=== PATIENT | female | born 1935 | race Caucasian/White ===

== ENCOUNTER 2016-10-04 18:10 | Emergency (ER) | payer MEDICARE, OTHER ==
--- NOTE | 2016-10-04 18:47 | CT REPORT ---
HISTORY: Dizziness, blurred vision, head trauma 2 days ago COMPARISON: None. TECHNIQUE: Axial non-contrast images obtained from skull vertex through foramen magnum. Dose reduction technique was utilized. FINDINGS: BRAIN: There is age related atrophy. Acute subdural hematoma along the left posterior falx and left intrafor aminal. Subdural hematoma measures up to 4 mm in maximum axial thickness. No significant mass effect or hydrocephalus. There is no CT evidence of infarction. BONES AND EXTRACRANIAL SOFT TISSUES: The orbits are unremarkable. The paranasal sinuses and mastoid air cells are clear. The calvarium is intact. IMPRESSION: 1. Acute left parafalcine and tentorial subdural hematoma. 2. Age related atrophy. Critical results were communicated to ROSALIND LINO MD at 10/04/2016 6:43 PM. Final Electronic Signature: This report was electronically signed by Holden Bland MD on 10/04/2016 6:45 PM. nara /
[2016-10-04 19:00] LABS: BASOPHIL# 0.3 X 10^3uL (0.0-0.1); BASOPHILS 4.4 % (0.0-2.0); EOSINOPHILS 0.7 % (0.0-6.0); HEMATOCRIT 40.7 % (36.0-48.0); HEMOGLOBIN 13.8 g/dL (12.0-16.0); LYMPHOCYTES 17.3 % (20.0-40.0); LYMPHOCYTES# 1.1 X 10^3uL (0.8-3.8); MEAN CELL VOLUME 101.4 fL (80.0-100.0); MEAN CORPUSCULAR HEMOGLOBIN 34.5 pg (29.0-35.0); MEAN PLATELET VOLUME 7.9 fL (7.4-10.4); MONOCYTES 10.5 % (2.0-10.0); MONOCYTES# 0.7 X 10^3uL (0.2-1.0); NEUTROPHILS 67.1 % (54.0-75.0); NEUTROPHILS# 4.5 X 10^3uL (2.6-6.7); PLATELET COUNT 282 X 10^3uL (130-440); RED BLOOD COUNT 4.01 X 10^6uL (4.20-6.10); RED CELL DISTRIBUTION WIDTH 13.4 % (11.5-14.5); WHITE BLOOD COUNT 6.6 X 10^3uL (3.9-10.7)
[2016-10-04] MEDS ORDERED: PHYTONADIONE 10 MG/ML AMP ONE (19:07)
[2016-10-04] MEDS ORDERED: PROTHROMBIN COMPLEX CONCENTRATE IV ONE (19:08)
[2016-10-04] MEDS ORDERED: [UNRECOGNIZED DRUG - OTHER] IV ONE (19:08)
[2016-10-04 19:11] LABS: BLOOD UREA NITROGEN 22 mg/dL (7-17); CALCIUM 9.5 mg/dL (8.4-10.2); CHLORIDE 95 mmol/L (98-107); CREATININE 0.8 mg/dL (0.5-1.0); GLUCOSE 113 mg/dL (70-100); POTASSIUM 3.8 mmol/L (3.5-5.1); SODIUM 133 mmol/L (137-145)
--- NOTE | 2016-10-04 19:46 | ER NURSING DOCUMENTATION ---
Nurse's Notes [facility] Name:Ashley Rolon Age:81 yrs Sex:Female :1935 Arrival Date:10/04/2016 Time:18:10 BedTrauma-A Private MD:Luis M Cobos Diagnosis:Intracranial Bleed: Subdural-Hematoma; Left Posterior Parafalcine Presentation: 10/04 18:20 Presenting complaint: Patient states: States she fell from her bed 2 nights ago, hit rs the posterior, no problems that noc. Next am had a mild ESTRADA. This afternoon she has developed a left sided ESTRADA. Had left eye surgery 3 weeks ago and that eye feels slightly different but her vision is unchanged. Transition of care: Home. 18:20 Acuity: TRICIA 3 rs 18:20 Method Of Arrival: Private Vehicle rs Triage Assessment: 18:26 Headache History: Denies prior headaches. General: Appears in no apparent distress, rs comfortable, well developed, well nourished, well groomed, Behavior is cooperative, pleasant. Pain: Complains of pain in left side of head. Neuro: No deficits noted. Level of Consciousness is awake, alert, Oriented to person, place, time, event. Cardiovascular: No deficits noted. Capillary refill < 3 seconds Pulses are 3+ in left radial artery. Respiratory: No deficits noted. Respiratory effort is even, unlabored, Respiratory pattern is regular, symmetrical. Derm: No deficits noted. Skin is pink, warm & dry. Historical: - Allergies: Flymama-Rlz-Kru Reductase Inhibitors; - Home Meds: 1. Potassium Chloride Oral 2. Coumadin Oral 3. vitamins 4. Coreg Oral 5. Lasix Oral 6. spironolactone Oral 7. coumadin 5 mg one half to one tab as directed 8. budesonide oral 9. Cardizem CD 240 mg oral cp24 1 cap once daily 10. timolol maleate 0.5 % ophthalmic drop twice a day 11. patanase 0.6% solution two sprays each nostril BID 12. Klonopin 1 mg oral tab 1/2 to one tab QHS prn sleep 13. Lasix 40 mg oral tab 1 tab plus one half tab extra prn edema 14. potassium chloride 10 mEq oral TbER 2 tabs once daily for Hypokalemia Prevention 15. Nitrostat 0.4 mg sublingual subl 1 tab at the first sign of an attack; no more than 3 tabs are recommended within a 15 minute period. 16. restasis 0.05% use as directed - PMHx: ATRIAL FIB; CHF; GLAUCOMA; Esophageal Stricture (January 06, 2016); humeral fx; osteopenia; eczema; OSTEOARTHRITIS; CHF; CAD; HTN; nocturnal hypoxia; sleep apnrea; - PSHx: left eye; - Tetanus: < 10 years. - Ebola Screening: : Patient negative for fever greater than or equal to 101.5 degrees Fahrenheit, and additional compatible Ebola Virus Disease symptoms. Patient denies exposure to infectious person. Patient denies travel to an Ebola-affected area in the 21 days before illness onset. No symptoms or risks identified at this time. . - Immunization history: Unable to Obtain. - Social history: Smoking status: Patient states was never smoker of tobacco. Screenin:43 Infectious Disease Risk None. Abuse screen: Denies threats or abuse. Nutritional rs screening: No deficits noted. Assessment: 19:27 Reassessment: No changes from previously documented assessment. rs Vital Signs: 18:18 BP 161 / 92 (auto/); Pulse 96; Resp 18; Pulse Ox 96% ; Weight 43.09 kg; rs 18:22 Pulse Ox 94% ; rs 19:15 BP 150 / 88 (auto/); rs 19:17 Pulse Ox 92% ; rs Kewadin Coma Score: 18:15 Eye Response: spontaneous(4). Verbal Response: oriented(5). Motor Response: obeys cd commands(6). Total: 15. 19:27 Eye Response: spontaneous(4). Verbal Response: oriented(5). Motor Response: obeys rs commands(6). Total: 15. 19:28 Eye Response: spontaneous(4). Verbal Response: oriented(5). Motor Response: obeys cd commands(6). Total: 15. 19:30 Eye Response: spontaneous(4). Verbal Response: oriented(5). Motor Response: obeys cd commands(6). Total: 15. ED Course: 18:12 Patient arrived in ED. lm3 18:12 Luis M Cobos MD is Private Physician. lm3 18:20 Shagufta Cooper RN is Primary Nurse. rs 18:20 Eliezer White MD is Attending Physician. cd 18:[address] ms 18:24 Triage completed. rs 18:30 Notified ED Physician of patient's arrival and chief complaint. Dr. White notified. Arm rs band placed on Bed in low position Call Light in Reach Gowned HOB Elevated Side rails up x1. CT done. 18:30 Door closed. Noise minimized. Lights dimmed. Verbal reassurance given. rs 18:38 Patient moved back from CT. pm1 19:15 Inserted peripheral IV: 20 gauge in left forearm. lb 19:50 Valuables Remains with patient. Pulse Ox - RN Monitoring Only. rs Administered Medications: Completed: Kcentra 25 units/kg IV at 120 units/min once; not to exceed 2,500 units initiate at rate = 0.12 mL/kg/min (~3 units/kg/min) not to exceed maximum rate = 8.4 mL/min (~210 units/min) Give 1080 Units at 120 units/min IVPB over 9 minutes 19:11 Drug: Vitamin K1 10 mg; Route: Sub-Q; Site: right upper arm; lb 19:45 Follow up: Response: No adverse reaction rs Outcome: 19:35 ER care complete, transfer ordered by . cd 19:45 Patient left the ED. rs 19:46 Transferred: Patient will be transferred to: [facility]. Patient rs will be transported by: [facility] ground. 19:50 Condition: stable rs 19:50 Report given to Ronny CLAYTON at [facility] ER 19:50 Instructed on need for transfer 20:07 Patient left the ED. rs Signatures: Shagufta Cooper RN RN rs Eliezer White MD MD Lisa Self ms, Philisha pm1 Suzan Short Jessica Moran lm3
--- NOTE | 2016-10-04 19:46 | ER PHYSICIAN DOCUMENTATION ---
Physician Documentation [facility] Name:Ashley Rolon Age:81 yrs Sex:Female :1935 Arrival Date:10/04/2016 Time:18:10 BedTrauma-A Private MD:Luis M Cobos ED, Chris Disposition: 10/04/16 19:35 Transfer ordered to [facility]. Diagnosis is Intracranial Bleed: Subdural - Hematoma; Left Posterior Parafalcine. - Reason for transfer: Higher level of care. - Accepting physician is Dr. Waller [facility] Trauma Surgeon. - Condition is Fair. - Problem is new. - Symptoms are unchanged. COBRA Form completed? Yes Transfer - Mode of Transportation Ambulance HPI: 10/04 18:15 This 81 yrs old Female presents to ER via Private Vehicle with complaints of cd Headache, Vision Problem. 18:15 The patient or guardian reports injury. The complaints affect the left occipital area cd and right occipital area. Context of injury: The problem was sustained at home, resulted from a fall, while walking, fell at 3:00 AM 2 days ago (exactly 40 hours ago) while going to the bathroom. Hit her posterior head, No LOC, severe Headache, nausea or vomiting. No confusion, or neuro changes. She is on Coumadin for Hx of Atrial Fibrillation. Last INR was last week at 2.1 She went back to bed and woke up in the morning with a left posterior headache. 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 She states her left eye has some blurry vision today. No visual loss or field changes. No Diploplia.. Onset: The symptom(s)/episode began/occurred acutely, 2 day(s) ago. Associated signs and symptoms: Loss of consciousness: This patient did not experience any loss of consciousness. Pertinent positives: headache, injury, Pertinent negatives: dazed, double vision, nausea, neck pain, seizure, vomiting. Severity of symptoms: At their worst the symptoms were mild, in the emergency department the symptoms are unchanged. 18:34 Intracranial bleed risk factors: age over 60, on anticoagulants or bleeding tendency. cd Historical: - Allergies: Cnajuvo-Zkx-Xnl Reductase Inhibitors; - Home Meds: 1. Potassium Chloride Oral 2. Coumadin Oral 3. vitamins 4. Coreg Oral 5. Lasix Oral 6. spironolactone Oral 7. coumadin 5 mg one half to one tab as directed 8. budesonide oral 9. Cardizem CD 240 mg oral cp24 1 cap once daily 10. timolol maleate 0.5 % ophthalmic drop twice a day 11. patanase 0.6% solution two sprays each nostril BID 12. Klonopin 1 mg oral tab 1/2 to one tab QHS prn sleep 13. Lasix 40 mg oral tab 1 tab plus one half tab extra prn edema 14. potassium chloride 10 mEq oral TbER 2 tabs once daily for Hypokalemia Prevention 15. Nitrostat 0.4 mg sublingual subl 1 tab at the first sign of an attack; no more than 3 tabs are recommended within a 15 minute period. 16. restasis 0.05% use as directed - PMHx: ATRIAL FIB; CHF; GLAUCOMA; Esophageal Stricture (January 06, 2016); humeral fx; osteopenia; eczema; OSTEOARTHRITIS; CHF; CAD; HTN; nocturnal hypoxia; sleep apnrea; - PSHx: left eye; - Tetanus: < 10 years. - Ebola Screening: : Patient negative for fever greater than or equal to 101.5 degrees Fahrenheit, and additional compatible Ebola Virus Disease symptoms. Patient denies exposure to infectious person. Patient denies travel to an Ebola-affected area in the 21 days before illness onset. No symptoms or risks identified at this time. . - Immunization history: Unable to Obtain. - Social history: Smoking status: Patient states was never smoker of tobacco. ROS: 19:25 Cardiovascular: Negative for chest pain, palpitations, edema and pleuritic pain. cd Respiratory: Negative for shortness of breath, dyspnea on exertion, cough, sputum production, wheezing, hemoptysis and pleuritic chest pain. Abdomen/GI: Negative for abdominal pain, nausea, vomiting, diarrhea, constipation, distension, melena, hematochezia and hematemesis. Back: Negative for injury, pain or muscle spasms. : Negative for injury, bleeding, discharge, dysuria, frequency, urgency and swelling. MS/Extremity: Negative for injury, deformity, edema, calf tenderness, pain or coldness. 19:25 Skin: Negative for injury, rash, itching and discoloration. cd 19:25 Constitutional: Negative for body aches, poor PO intake. 19:25 Eyes: Positive for blurry vision, Negative for pain, photophobia, visual disturbance, vision loss. 19:25 ENT: Negative for acute changes. 19:25 Neck: Negative for injury or acute deformity, pain with movement, pain at rest. 19:25 Neuro: Positive for headache, Negative for altered mental status, dizziness, gait disturbance, loss of consciousness, numbness, seizure activity, speech changes, syncope, tingling, weakness. 19:25 All other systems are negative. Exam: Chest/axilla: Normal chest wall appearance and motion. Nontender with no deformity. No lesions are appreciated. Cardiovascular: Regular rate and rhythm with a normal S1 and S2. No gallops, murmurs, or rubs. Normal PMI, no JVD. No pulse deficits. Respiratory: Lungs have equal breath sounds bilaterally, clear to auscultation and percussion. No rales, rhonchi or wheezes noted. No increased work of breathing, no retractions or nasal flaring. Abdomen/GI: Soft, non-tender, with normal bowel sounds. No distension or tympany. No guarding or rebound. No evidence of tenderness throughout. Back: No spinal tenderness. No costovertebral tenderness. Full range of motion. Skin: Warm, dry with normal turgor. Normal color with no rashes, no lesions, and no evidence of cellulitis. 19:28 MS/ Extremity: Pulses equal, no cyanosis. Neurovascular intact. Full, normal range cd of motion. 19:28 Constitutional: The patient appears alert, awake, non-diaphoretic, non-toxic, well developed, well nourished. 19:28 Head/face: Exam is negative for abrasion(s), ecchymosis, swelling, tenderness, Noted is contusion, Basilar skull fracture findings: the patient does not have obvious signs of a basilar skull fracture, no Cao signs, no hemotympanum, no nasal drainage, no racoon eyes. 19:28 Eyes: Pupils: equal, round, and reactive to light and accomodation, Extraocular movements: intact throughout. 19:28 ENT: TM's: are normal, hemotympanum, is not appreciated, bilaterally, Voice: is normal. 19:28 Neck: C-spine: Nexus Criteria: there is no tenderness to the posterior midline, the patient is not clinically intoxicated, the patient displays normal alertness, no focal neurologic deficit is appreciated, no distracting injury is present, Nexus criteria: no cervical midline tenderness, patient is not intoxicated, mental status is normal, no focal/neurologic deficits, and no painful distracting injuries are present, vertebral tenderness, is not appreciated. 19:28 Neuro: Orientation: is normal, to person, place & time. Mentation: is normal, Memory: is normal, Cranial nerves: CN II- XII are normal as tested, Cerebellar function: is grossly normal, normal finger to nose testing, heel to montano testing is normal, Motor: moves all fours, Sensation: is normal, Gait: is steady, Deep tendon reflexes are normal. Vital Signs: 18:18 BP 161 / 92 (auto/); Pulse 96; Resp 18; Pulse Ox 96% ; Weight 43.09 kg; rs 18:22 Pulse Ox 94% ; rs 19:15 BP 150 / 88 (auto/); rs 19:17 Pulse Ox 92% ; rs Clarkson Coma Score: 18:15 Eye Response: spontaneous(4). Verbal Response: oriented(5). Motor Response: obeys cd commands(6). Total: 15. 19:27 Eye Response: spontaneous(4). Verbal Response: oriented(5). Motor Response: obeys rs commands(6). Total: 15. 19:28 Eye Response: spontaneous(4). Verbal Response: oriented(5). Motor Response: obeys cd commands(6). Total: 15. 19:30 Eye Response: spontaneous(4). Verbal Response: oriented(5). Motor Response: obeys cd commands(6). Total: 15. MDM: 18:20 Patient medically screened. cd 18:25 Data interpreted: Pulse oximetry: on room air is 92 %. Interpretation: normal. cd 18:35 Differential diagnosis: Contusion of Intracranial bleed- subdural, epidural, cd subarachnoid, intracerebral, cerebral contusion. 18:55 Data reviewed: vital signs, nurses notes, old medical records, lab test result(s), EKG, cd radiologic studies, CT scan, and as a result, I will *Transfer Patient initiate a consult, from a [facility] Trauma Surgeon, will give Kcentra IV to reverse the patient's INR from Coumadin, which is at 2.2. 19:15 Physician consultation: Dr. Sridhar TRAN was called at 19:00, was contacted at 19:05, regarding admission, to [facility] ED Trauma Service, consult, patient's condition, need to come to ED to see patient, need to evaluate the patient as soon as possible, and will see patient in ED, shortly, after a discussion of the case, a recommendation for transfer for higher level of care is made. 19:30 Neurological re-evaluation: normal neurological exam including cranial nerves, cd orientation, mentation, motor and sensory exam, cerebellar testing, GCS normal, and normal gait. 19:33 Counseling: I had a detailed discussion with the patient and/or guardian regarding: the cd historical points, exam findings, and any diagnostic results supporting the discharge/admit diagnosis, lab results, radiology results, the need to transfer to another facility, for higher level of care, [facility] does not immediately have the required specialist. 19:37 ECG:. 10/04 18:57 Order name: INR W/ CAPI DRAW; Complete Time: 19:17 EDMS 10/04 19:17 Interpretation: Abnormal: INR W/ CAPI DRAW 2.2; On Coumadin for Atrial Fibrillation. In cd [place] range. 10/04 19:02 Order name: CBC AUTO DIF, MDIF/RMOR IF IND; Complete Time: 19:17 EDMS 10/04 19:17 Interpretation: Normal. 10/04 19:12 Order name: BASIC METABOLIC PANEL; Complete Time: 19:17 EDMS 10/04 19:17 Interpretation: Normal Except: SODIUM 133; CHLORIDE 95. 10/04 18:49 Order name: CAT SCAN; HEAD W/O CON [id number]; Complete Time: 19:16 EDMS 10/04 19:18 Interpretation: Abnormal: Subdural Hematoma; See Report. 10/04 18:45 Order name: EKG - 12 Lead; Complete Time: 20:06 cd EC:35 Rate is 100 beats/min. Rhythm is irregularly irregular. QRS interval is normal. QT cd interval is normal. No Q waves. T waves are Normal. ST Segment is depressed in leads V3, V4, V5, V6. Clinical impression: Atrial Fibrillation and Chu-septal infarct, old. Interpreted by me. Dispensed Medications: Completed: Kcentra 25 units/kg IV at 120 units/min once; not to exceed 2,500 units initiate at rate = 0.12 mL/kg/min (~3 units/kg/min) not to exceed maximum rate = 8.4 mL/min (~210 units/min) Give 1080 Units at 120 units/min IVPB over 9 minutes 19:11 Drug: Vitamin K1 10 mg; Route: Sub-Q; Site: right upper arm; lb 19:45 Follow up: Response: No adverse reaction rs Critical care time excluding procedures: 19:36 Critical care time: Bedside Care: 30 minutes, Consultation: 10 minutes, Family cd Intervention: 20 minutes. Total time: 60 minutes Signatures: Shagufta Cooper RN RN rs Eliezer White MD MD cd Bollock, Lynda lb
== END 2016-10-04 20:07 | disposition short-term general hospital (02) ==
LOC: ER 18:10
DX: S06.5X0A Traumatic subdural hemorrhage without loss of consciousness, initial encounter (principal); S00.93XA Contusion of unspecified part of head, initial encounter; W19.XXXA Unspecified fall, initial encounter; Y92.013 Bedroom of single-family (private) house as the place of occurrence of the external cause; Y93.01 Activity, walking, marching and hiking; Z79.01 Long term (current) use of anticoagulants; I48.91 Unspecified atrial fibrillation; E87.1 Hypo-osmolality and hyponatremia; I10 Essential (primary) hypertension; I25.10 Atherosclerotic heart disease of native coronary artery without angina pectoris; Z79.899 Other long term (current) drug therapy; Z74.3 Need for continuous supervision
CPT/HCPCS: 36415; 70450; 80048; 85025; 85610; 93010; 96372; 99285; 99291; C9132; A0425; A0429; J3430

== ENCOUNTER 2016-10-17 09:49 | Emergency (ER) | payer MEDICARE, OTHER ==
--- NOTE | 2016-10-17 10:55 | ER PHYSICIAN DOCUMENTATION ---
Physician Documentation [facility] Name:Ashley Dangelo Age:81 yrs Sex:Female :1935 Arrival Date:10/17/2016 Time:09:49 Bed3 Private MD:Luis M Cobos EDtenaCory Disposition: 10/17/16 10:45 Discharged to Home/Self Care. Impression: Lower Leg Injury, (Knee, Leg, Ankle, Foot). - Condition is Good. - Discharge Instructions: LEG PAIN vascular - PERIPHERAL VASCULAR DISEASE, Leg Injury - CONTUSION, Lower Extremity. - Medical Reconciliation form form. - Follow up: Luis M Cobos MD; When: As needed; Reason: Worsening of condition. - Problem is new. - Symptoms are unchanged. HPI: 10/17 10:42 This 81 yrs old Female presents to ER via Private Vehicle with complaints of sc Leg Pain - RT CALF. 10:42 The patient presents with pain, that is acute. The complaints affect the right calf. sc Context: The problem was sustained at home, resulted from an unknown cause, the patient can fully bear weight, the patient is able to ambulate, stopped coiumadin 2 weeks ago, secondary to sdh. Onset: The symptom(s)/episode began/occurred yesterday. Associated signs and symptoms: The patient has no apparent associated signs or symptoms. Historical: - Allergies: Upvgqub-Vuf-Egw Reductase Inhibitors; - Home Meds: 1. Potassium Chloride Oral 2. vitamins 3. Coreg Oral 4. Lasix Oral 5. spironolactone Oral 6. budesonide oral 7. Cardizem CD 240 mg oral cp24 1 cap once daily 8. timolol maleate 0.5 % ophthalmic drop twice a day 9. patanase 0.6% solution two sprays each nostril BID 10. Klonopin 1 mg oral tab 1/2 to one tab QHS prn sleep 11. Lasix 40 mg oral tab 1 tab plus one half tab extra prn edema 12. potassium chloride 10 mEq oral TbER 2 tabs once daily for Hypokalemia Prevention 13. Nitrostat 0.4 mg sublingual subl 1 tab at the first sign of an attack; no more than 3 tabs are recommended within a 15 minute period. - PMHx: ATRIAL FIB; CHF; GLAUCOMA; Esophageal Stricture (January 06, 2016); humeral fx; osteopenia; eczema; OSTEOARTHRITIS; CAD; HTN; nocturnal hypoxia; sleep apnrea; Intracranial Bleed: Subdural - HematomaLeft Posterior Parafalcine (October 04, 2016); - PSHx: left eye; - Tetanus: < 10 years. - Ebola Screening: : Patient negative for fever greater than or equal to 101.5 degrees Fahrenheit, and additional compatible Ebola Virus Disease symptoms. Patient denies exposure to infectious person. Patient denies travel to an Ebola-affected area in the 21 days before illness onset. No symptoms or risks identified at this time. . - Immunization history: Unable to Obtain. - Social history: Smoking status: Patient states was never smoker of tobacco. ROS: 10:43 Constitutional: Negative for fever, chills, and weight loss. sc Eyes: Negative for injury, pain, redness, and discharge. ENT: Negative for injury, pain, and discharge. Neck: Negative for injury, pain, and swelling. Cardiovascular: Negative for chest pain, palpitations, and edema. Back: Negative for injury and pain. Skin: Negative for injury, rash, and discoloration. 10:43 Neuro: Negative for headache, weakness, numbness, tingling, and seizure. sc 10:43 MS/extremity: Positive for pain. Exam: Constitutional: This is a well developed, well nourished patient who is awake, alert, and in no acute distress. Head/Face: Normocephalic, atraumatic. Eyes: Pupils equal round and reactive to light, extra-ocular motions intact. Lids and lashes normal. Conjunctiva and sclera are non-icteric and not injected. Cornea within normal limits. Periorbital areas with no swelling, redness, or edema. Neck: Trachea midline, no thyromegaly or masses palpated, and no cervical lymphadenopathy. Supple, full range of motion without nuchal rigidity, or vertebral point tenderness. No meningismus. Chest/axilla: Normal chest wall appearance and motion. Nontender with no deformity. No lesions are appreciated. Cardiovascular: Regular rate and rhythm with a normal S1 and S2. No gallops, murmurs, or rubs. Normal PMI, no JVD. No pulse deficits. Respiratory: Lungs have equal breath sounds bilaterally, clear to auscultation and percussion. No rales, rhonchi or wheezes noted. No increased work of breathing, no retractions or nasal flaring. Back: No spinal tenderness. No costovertebral tenderness. Full range of motion. 10:43 Skin: Warm, dry with normal turgor. Normal color with no rashes, no lesions, and no hi evidence of cellulitis. 10:46 Musculoskeletal/extremity: Extremities: grossly normal except: pain, ROM: intact in sc all extremities, Circulation is intact in all extremities. Sensation intact. Compartment Syndrome exam of affected extremity: is normal. Weight bearing: able to fully bear weight, Tendon exam: specific tendon testing normal through active and passive range of motion DVT Exam: No signs of deep vein thrombosis. Vital Signs: 10:23 BP 145 / 80; Pulse 100; Resp 20; Temp 98.7; Pulse Ox 97% on R/A; Pain 2/10; rs MDM: 09:55 Patient medically screened. hi 10:44 Differential diagnosis: dvt vs bakers cyst vs leg cramp, neg us per radiologist Kishan. hi Data reviewed: vital signs, nurses notes, radiologic studies, ultrasound, and as a result, I will discharge patient. Counseling: I had a detailed discussion with the patient and/or guardian regarding: the historical points, exam findings, and any diagnostic results supporting the discharge/admit diagnosis, radiology results, the need for outpatient follow up, to return to the emergency department if symptoms worsen or persist or if there are any questions or concerns that arise at home. 10/17 10:30 Order name: US EXT LOWER RIGHT [id number] [facility] 10/17 10:30 Order name: US EXT LOWER RIGHT [id number] [facility] 10/17 11:13 Order name: US EXT LOWER RIGHT [id number] [facility] Dispensed Medications: No medications were administered Signatures: Shagufta Cooper RN RN rs Pavlish, Lena, RN RN lp Chew, Scott, MD MD hi
--- NOTE | 2016-10-17 10:55 | ER NURSING DOCUMENTATION ---
Nurse's Notes [facility] Name:Ashley Dangelo Age:81 yrs Sex:Female :1935 Arrival Date:10/17/2016 Time:09:49 Bed3 Private MD:Luis M Cobos Diagnosis:Lower Leg Injury, (Knee, Leg, Ankle, Foot) Presentation: 10/17 10:08 Presenting complaint: Patient states: Right posterior leg pain, 2/10, noticed pain this rs morning. October 04 she had a subdural , spent 2 days at [facility] and had no procedures, did not get any worse. Now she is off coumadin, and was started on salt tabs for low Na. Transition of care: Home. 10:08 Acuity: TRICIA 3 rs 10:08 Method Of Arrival: Private Vehicle rs Triage Assessment: 10:19 General: Appears in no apparent distress, comfortable, well developed, well nourished, rs well groomed, Behavior is cooperative, pleasant. Pain: Complains of pain in right calf pain is 2/10. Neuro: No deficits noted. Level of Consciousness is awake, alert, Oriented to person, place, time, event, Multi Operation Machine Operator are equal bilaterally Moves all extremities. Gait is steady. Cardiovascular: No deficits noted. Capillary refill < 3 seconds Pulses are 3+ in right radial artery Denies. Respiratory: No deficits noted. Respiratory effort is even, unlabored, Respiratory pattern is regular, symmetrical, Breath sounds are clear. GI: No deficits noted. Derm: No deficits noted. Skin is pink, warm & dry. Denies. Historical: - Allergies: Avjtwdu-Swb-Gqt Reductase Inhibitors; - Home Meds: 1. Potassium Chloride Oral 2. vitamins 3. Coreg Oral 4. Lasix Oral 5. spironolactone Oral 6. budesonide oral 7. Cardizem CD 240 mg oral cp24 1 cap once daily 8. timolol maleate 0.5 % ophthalmic drop twice a day 9. patanase 0.6% solution two sprays each nostril BID 10. Klonopin 1 mg oral tab 1/2 to one tab QHS prn sleep 11. Lasix 40 mg oral tab 1 tab plus one half tab extra prn edema 12. potassium chloride 10 mEq oral TbER 2 tabs once daily for Hypokalemia Prevention 13. Nitrostat 0.4 mg sublingual subl 1 tab at the first sign of an attack; no more than 3 tabs are recommended within a 15 minute period. - PMHx: ATRIAL FIB; CHF; GLAUCOMA; Esophageal Stricture (January 06, 2016); humeral fx; osteopenia; eczema; OSTEOARTHRITIS; CAD; HTN; nocturnal hypoxia; sleep apnrea; Intracranial Bleed: Subdural - HematomaLeft Posterior Parafalcine (October 04, 2016); - PSHx: left eye; - Tetanus: < 10 years. - Ebola Screening: : Patient negative for fever greater than or equal to 101.5 degrees Fahrenheit, and additional compatible Ebola Virus Disease symptoms. Patient denies exposure to infectious person. Patient denies travel to an Ebola-affected area in the 21 days before illness onset. No symptoms or risks identified at this time. . - Immunization history: Unable to Obtain. - Social history: Smoking status: Patient states was never smoker of tobacco. Screenin:27 Infectious Disease Risk None. Abuse screen: Denies threats or abuse. Nutritional rs screening: No deficits noted. Assessment: 10:26 See Triage Assessment done by same RN. rs Vital Signs: 10:23 BP 145 / 80; Pulse 100; Resp 20; Temp 98.7; Pulse Ox 97% on R/A; Pain 2/10; rs ED Course: 09:51 Patient arrived in ED. lm3 09:51 Luis M Cobos MD is Private Physician. lm3 09:55 Cory De Luna MD is Attending Physician. sc 10:08 Shagufta Cooper, FORREST is Primary Nurse. rs 10:12 Triage completed. rs 10:15 Notified ED Physician of patient's arrival and chief complaint. Arm band placed on Bed rs in low position Call Light in Reach HOB Elevated Side rails up x1. US ordered. 10:16 Patient moved to [facility]. mk 10:27 Patient has correct armband on for positive identification. Placed in gown. Bed in low rs position. Call light in reach. Side rails up X 1. 10:30 US EXT LOWER RIGHT [id number] In Process Unspecified. EDMS 10:30 US EXT LOWER RIGHT [id number] In Process Unspecified. EDMS 10:33 Patient moved back from [facility]. mk 10:44 Luis M Cobos MD is Referral Physician. sc 10:54 Valuables Remains with patient. lp Administered Medications: No medications were administered Outcome: 10:45 Discharge ordered by . alissa 10:54 Discharged to home ambulatory. lp 10:54 Condition: stable 10:54 Instructed on discharge instructions, follow up and referral plans. 10:55 Patient left the ED. lp Signatures: Dispatcher [employer] Shagufta Siddiqi RN RN rs Pavlish, Lena, RN RN lp Chew, Scott, MD MD sc Kimbro, Marcy mk McKibbon-Moore, Lisa 3
--- NOTE | 2016-10-17 11:12 | US REPORT ---
EXAM:US EXT GHASSAN INDICATION: Right leg pain and swelling. COMPARISON:None TECHNIQUE:Duplex sonography was performed of the deep veins of the right leg, including grayscale and color/spectral Doppler interrogation. FINDINGS: The common femoral, superficial femoral, and popliteal veins compress normally and show nor mal flow and augmentation. No echogenic thrombus is demonstrated. Visualized calf veins appear normal . No popliteal cyst or mass is demonstrated. IMPRESSION:Negative for deep vein thrombosis in the right leg. Final Electronic Signature: This report was electronically signed by Brandon Mcconnell MD on 10/17/2016 11:09 AM. tim /
== END 2016-10-17 10:55 | disposition home or self-care (01) ==
LOC: ER 09:49
DX: M79.661 Pain in right lower leg (principal); Z86.79 Personal history of other diseases of the circulatory system; I48.91 Unspecified atrial fibrillation; I10 Essential (primary) hypertension; I25.10 Atherosclerotic heart disease of native coronary artery without angina pectoris; Z79.899 Other long term (current) drug therapy
CPT/HCPCS: 99282; 99284

== ENCOUNTER 2016-10-18 07:23 | Day surgery (SDC) | payer MEDICARE, OTHER ==
[2016-10-18] MEDS ORDERED: FENTANYL 100 MCG/2 ML VIAL ONE (08:26)
[2016-10-18] MEDS ORDERED: LIDOCAINE HCL 2% 20 ML VIAL ONE (08:33)
== END 2016-10-18 09:37 | disposition home or self-care (01) ==
LOC: GI 07:23
PROVIDERS: ATTEND Internal Medicine Cardiovascular Disease
DX: I48.2 Chronic atrial fibrillation (principal); I36.1 Nonrheumatic tricuspid (valve) insufficiency; I50.32 Chronic diastolic (congestive) heart failure
CPT/HCPCS: 1922; 93312; 93321; 93325

== ENCOUNTER 2016-10-20 15:02 | Emergency (ER) | payer MEDICARE, OTHER ==
[2016-10-20] MEDS ORDERED: ACETAMINOPHEN 325 MG TABLET PO ONE (15:48)
[2016-10-20 15:55] LABS: BLOOD UREA NITROGEN 16 mg/dL (7-17); CALCIUM 9.8 mg/dL (8.4-10.2); CHLORIDE 99 mmol/L (98-107); CREATININE 0.8 mg/dL (0.5-1.0); GLUCOSE 106 mg/dL (70-100); MAGNESIUM 2.2 mg/dL (1.6-2.3); POTASSIUM 3.4 mmol/L (3.5-5.1); SODIUM 138 mmol/L (137-145)
[2016-10-20] MEDS ORDERED: POTASSIUM EFF 25 MEQ TABLET ONE (16:20)
--- NOTE | 2016-10-20 16:41 | ER PHYSICIAN DOCUMENTATION ---
Physician Documentation [facility] Name:Ashley Dangelo Age:81 yrs Sex:Female :1935 Arrival Date:10/20/2016 Time:15:02 Bed3 Private MD:Luis M Cobos ED, John Disposition: 10/20/16 16:03 Discharged to Home/Self Care. Impression: Hypokalemia, Lower Extremity Pain. - Condition is Good. - Discharge Instructions: MUSCLE ACHING - MYALGIAS, DIET, High Potassium. - Medical Reconciliation form form. - Follow up: Luis M Cobos MD; When: Tomorrow; Reason: Continuance of care. - Problem is new. - Symptoms have improved. HPI: 10/20 15:37 This 81 yrs old Female presents to ER via Private Vehicle with complaints of jm Leg Pain. 15:37 The patient presents with pain, that is acute. The complaints affect the right calf. jm Context: resulted from an unknown cause, the patient can fully bear weight, the patient is able to ambulate. Onset: The symptom(s)/episode began/occurred 4 day(s) ago, and became worse today. The patient has been recently seen at the [facility] Emergency Department, last week, for similar complaints an ultrasound was performed, and was negative. Pt returns today w continued pain and worried about a blood clot. She is very paranoid. . Historical: - Allergies: Hlgbqyj-Lus-Uov Reductase Inhibitors; - Home Meds: 1. Potassium Chloride Oral 2. vitamins 3. Coreg Oral 4. Lasix Oral 5. spironolactone Oral 6. budesonide oral 7. Cardizem CD 240 mg oral cp24 1 cap once daily 8. timolol maleate 0.5 % ophthalmic drop twice a day 9. patanase 0.6% solution two sprays each nostril BID 10. Klonopin 1 mg oral tab 1/2 to one tab QHS prn sleep 11. Lasix 40 mg oral tab 1 tab plus one half tab extra prn edema 12. potassium chloride 10 mEq oral TbER 2 tabs once daily for Hypokalemia Prevention 13. Nitrostat 0.4 mg sublingual subl 1 tab at the first sign of an attack; no more than 3 tabs are recommended within a 15 minute period. - PMHx: ATRIAL FIB; CHF; GLAUCOMA; Esophageal Stricture (January 06, 2016); humeral fx; osteopenia; OSTEOARTHRITIS; CAD; HTN; nocturnal hypoxia; Intracranial Bleed: Subdural - HematomaLeft Posterior Parafalcine (October 04, 2016); Lower Leg Injury, (Knee, Leg, Ankle, Foot)(October 17, 2016); - PSHx: left eye; - Tetanus: < 10 years. - Ebola Screening: : No symptoms or risks identified at this time. . - Immunization history: Flu Vaccine < 1 year. - Social history: Smoking status: Patient states was never smoker of tobacco. ROS: 15:39 Constitutional: Negative for fatigue, fever. jm 15:39 Respiratory: Negative for shortness of breath. 15:39 MS/extremity: Positive for pain. 15:39 Skin: Negative for swelling. Exam: 15:30 Musculoskeletal/extremity: Extremities: Pulses: are absent in the absent bilaterally. jm , the right foot Tingling of extremity. decreased sensation. 15:30 Psych: Behavior/mood is pleasant, cooperative, anxious. 15:39 Constitutional: The patient appears alert, awake. jm 15:39 Cardiovascular: Rate: normal, Rhythm: regular, Pulses: no pulse deficits are appreciated. 15:39 Respiratory: the patient does not display signs of respiratory distress, Breath sounds: are normal. Vital Signs: 15:15 BP 157 / 111; Pulse 110; Resp 20; Temp 98.2; Pulse Ox 96% ; Weight 44.45 kg; Height 5 lc ft. 5 in. (165.10 cm); Pain 8/10; 15:34 Pulse 104; Resp 16; Pulse Ox 95% ; lc 15:51 BP 153 / 87; Pulse 98; Resp 18; Pulse Ox 95% ; Pain 4/10; lc 15:15 Body Mass Index 16.31 (44.45 kg, 165.10 cm) MDM: 15:22 Patient medically screened. 15:42 Differential diagnosis: DVT, cramps, strain. Data reviewed: vital signs, nurses notes, lab test result(s), and as a result, I will discharge patient. Counseling: I had a detailed discussion with the patient and/or guardian regarding: the historical points, exam findings, and any diagnostic results supporting the discharge/admit diagnosis, lab results, the need for outpatient follow up, with the patient's primary care provider, a orthopedic surgeon. 18:59 ED course: Both feet are pink w cap refill, although I am unable to get pulses in jm either foot. Pt just had a normal US on , so I am doubting any blood clot. . 10/20 15:56 Order name: BASIC METABOLIC PANEL; Complete Time: 16:01 EDMS 10/20 15:56 Order name: MAGNESIUM; Complete Time: 16:01 EDMS Dispensed Medications: 15:38 Drug: Tylenol 650 mg; Route: PO; lc 16:06 Follow up: Response: Pain is decreased 16:06 Drug: Potassium Effervescent Tablet 25 mEq; Route: PO; lc 16:40 Follow up: Response: No adverse reaction sc1 Signatures: Joanne Tyler RN RN Daniela Conte RN RN sc1 Luisito Hinojosa MD MD
--- NOTE | 2016-10-20 16:41 | ER NURSING DOCUMENTATION ---
Nurse's Notes [facility] Name:Ashley Dangelo Age:81 yrs Sex:Female :1935 Arrival Date:10/20/2016 Time:15:02 Bed3 Private MD:Luis M Cobos Diagnosis:Hypokalemia;Lower Extremity Pain Presentation: 10/20 15:11 Presenting complaint: Patient states: c/o sudden onset of right calf pain when walking lc around, after sitting at a desk. No trauma. Hx of subdural 2 weeks ago from a fall and is off her coumadin now, takes for a-fib. Monitor shows a fib now. Transition of care: Home. Notified ED Physician of patient's arrival and CC. 15:11 Acuity: TRICIA 2 lc 15:11 Method Of Arrival: Private Vehicle Triage Assessment: 15:20 General: Appears distressed, uncomfortable, Behavior is anxious, cooperative. Pain: lc Complains of pain in right calf Pain radiates to down calf Pain At worst was 8 out of 10 on a pain scale. Quality of pain is described as sharp, Pain began suddenly, 30 min ago Alleviated by nothing. Neuro: Level of Consciousness is awake, alert, Oriented to person, place, time, event, Skiing Teacher are equal bilaterally Speech is normal, Facial symmetry appears normal. Cardiovascular: Rhythm is atrial fibrillation. Derm: Skin is pink, warm & dry. Musculoskeletal: Circulation, motion, and sensation intact Capillary refill < 3 seconds Range of motion intact in all extremities. no swelling or firmness or redness to calf. Historical: - Allergies: Jxreoyw-Vzg-Tnl Reductase Inhibitors; - Home Meds: 1. Potassium Chloride Oral 2. vitamins 3. Coreg Oral 4. Lasix Oral 5. spironolactone Oral 6. budesonide oral 7. Cardizem CD 240 mg oral cp24 1 cap once daily 8. timolol maleate 0.5 % ophthalmic drop twice a day 9. patanase 0.6% solution two sprays each nostril BID 10. Klonopin 1 mg oral tab 1/2 to one tab QHS prn sleep 11. Lasix 40 mg oral tab 1 tab plus one half tab extra prn edema 12. potassium chloride 10 mEq oral TbER 2 tabs once daily for Hypokalemia Prevention 13. Nitrostat 0.4 mg sublingual subl 1 tab at the first sign of an attack; no more than 3 tabs are recommended within a 15 minute period. - PMHx: ATRIAL FIB; CHF; GLAUCOMA; Esophageal Stricture (January 06, 2016); humeral fx; osteopenia; OSTEOARTHRITIS; CAD; HTN; nocturnal hypoxia; Intracranial Bleed: Subdural - HematomaLeft Posterior Parafalcine (October 04, 2016); Lower Leg Injury, (Knee, Leg, Ankle, Foot)(October 17, 2016); - PSHx: left eye; - Tetanus: < 10 years. - Ebola Screening: : No symptoms or risks identified at this time. . - Immunization history: Flu Vaccine < 1 year. - Social history: Smoking status: Patient states was never smoker of tobacco. Screenin:27 Infectious Disease Risk None. Abuse screen: Denies threats or abuse. Denies injuries lc from another. Nutritional screening: No deficits noted. Assessment: 15:27 See Triage Assessment done by same RN. lc Vital Signs: 15:15 BP 157 / 111; Pulse 110; Resp 20; Temp 98.2; Pulse Ox 96% ; Weight 44.45 kg; Height 5 lc ft. 5 in. (165.10 cm); Pain 8/10; 15:34 Pulse 104; Resp 16; Pulse Ox 95% ; lc 15:51 BP 153 / 87; Pulse 98; Resp 18; Pulse Ox 95% ; Pain 4/10; lc 15:15 Body Mass Index 16.31 (44.45 kg, 165.10 cm) lc ED Course: 15:05 Patient arrived in ED. arc 15:05 Luis M Cobos MD is Private Physician. arc 15:11 Joanne Tyler, RN is Primary Nurse. 15:17 Triage completed. lc 15:17 Inserted peripheral IV: 20 gauge in left antecubital area and blood collected. sj 15:22 Luisito Hinojosa MD is Attending Physician. jm 15:27 Valuables Remains with patient Patient has correct armband on for positive lc identification. Placed in gown. Bed in low position. Call light in reach. Adult w/ patient. Warm blanket given. Elevated right leg. 15:28 security monitor on. lc 15:59 Primary Nurse role handed off by Joanne Tyler, RN ms1 15:59 Daniela Conte RN is Primary Nurse. sc1 16:03 Luis M Cobos MD is Referral Physician. 16:38 Discontinued lock intact, bleeding controlled, pressure dressing applied, No sc1 redness/swelling at site. Administered Medications: 15:38 Drug: Tylenol 650 mg; Route: PO; 16:06 Follow up: Response: Pain is decreased 16:06 Drug: Potassium Effervescent Tablet 25 mEq; Route: PO; 16:40 Follow up: Response: No adverse reaction [facility] Outcome: 16:03 Discharge ordered by . 16:39 Discharged to home ambulatory. [facility] 16:39 Condition: stable 16:39 Discharge instructions given to patient, Instructed on discharge instructions, follow up and referral plans. Demonstrated understanding of instructions. 16:40 Patient left the ED. ms1 Signatures: Joanne Tyler RN RN Daniela Partida RN RN sc1 Luisito Hinojosa MD MD jm Chew, Amelia, Tonie Magaña
[2016-10-20] MEDS ORDERED: MORPHINE SULFATE 4 MG/ML SYR ONE (19:05)
[2016-10-20] MEDS ORDERED: ONDANSETRON HCL 4 MG/2 ML VIAL ONE (19:11)
[2016-10-20] MEDS ORDERED: MORPHINE SULFATE 10 MG/ML SYR ONE (21:36)
== END 2016-10-20 16:40 | disposition home or self-care (01) ==
LOC: ER 15:02
DX: E87.6 Hypokalemia (principal); M79.661 Pain in right lower leg; R20.2 Paresthesia of skin; R09.89 Other specified symptoms and signs involving the circulatory and respiratory systems; I10 Essential (primary) hypertension; I25.10 Atherosclerotic heart disease of native coronary artery without angina pectoris; I48.91 Unspecified atrial fibrillation; Z79.899 Other long term (current) drug therapy; Z86.79 Personal history of other diseases of the circulatory system
CPT/HCPCS: 80048; 83735; 99282; 99284; J2270; J2405

== ENCOUNTER 2016-10-20 18:15 | Emergency (ER) | payer MEDICARE, OTHER ==
[2016-10-20 19:19] LABS: INR 0.9
--- NOTE | 2016-10-20 19:20 | ER NURSING DOCUMENTATION ---
Nurse's Notes [facility] Name:Ashley Dangelo Age:81 yrs Sex:Female :1935 Arrival Date:10/20/2016 Time:18:15 Bed3 Private MD:Luis M Cobos Diagnosis:Arterial Occlusion;Arterial Thrombosis Presentation: 10/20 18:34 Presenting complaint: Patient states: pain persists in right lower leg, rating 10/10, sj with numbness and tingling to right foot. Unable to bear weight. Ongoing x3 days. Transition of care: Home. Notified ED Physician of patient's arrival and CC Ashish Choi notified. 18:34 Method Of Arrival: Private Vehicle sj 18:34 Acuity: TRICIA 2 sj Triage Assessment: 18:35 General: Appears distressed, uncomfortable, Behavior is anxious, cooperative, pleasant. sj Pain: Complains of pain in right lower extremity from mid-calf to toes Pain currently is 10 out of 10 on a pain scale. Neuro: Level of Consciousness is awake, alert, Oriented to person, place, time, event, Weakness paresthesias in left foot. Cardiovascular: Capillary refill is > 3 seconds no cap refill, toes white on right foot. Pulses are absent in right posterior tibial artery and right dorsalis pedis artery unable to obtain right dorsalis pedis or right posterior tibial by Doppler. Able to Doppler right popliteal pulse. Reports. Respiratory: Respiratory effort is even, unlabored. Derm: Skin is discoloration to both lower extremities from mid-tibia to feet. Historical: - Allergies: Etwvkvi-Lip-Ovt Reductase Inhibitors; - Home Meds: 1. potassium chloride Oral 2. multivitamin oral 3. Coreg Oral 4. Lasix Oral 5. Spironolactone Oral 6. budesonide oral 7. Cardizem Oral 8. Timolol Maleate Opht 9. patanase 10. Klonopin Oral 11. Nitrostat SL - PMHx: atrial fibrillation; CHF; GLAUCOMA; esophageal stricture; humeral fracture; osteopenia; subdural hematoma; left leg injury; - PSHx: left eye; - Tetanus: < 10 years. - Ebola Screening: : Patient negative for fever greater than or equal to 101.5 degrees Fahrenheit, and additional compatible Ebola Virus Disease symptoms. Patient denies exposure to infectious person. Patient denies travel to an Ebola-affected area in the 21 days before illness onset. No symptoms or risks identified at this time. . - Immunization history: Pneumococcal vaccine is up to date, Flu Vaccine < 1 year. - Social history: Smoking status: Patient states was never smoker of tobacco. Patient/guardian denies using alcohol, marijuana. Screenin:53 Infectious Disease Risk None. Abuse screen: Denies threats or abuse. Denies injuries sj from another. Nutritional screening: No deficits noted. Assessment: 19:00 See Triage Assessment done by same RN. Neuro: Weakness in right Cardiovascular: sj Capillary refill is > 3 seconds in right toes Reports Nausea. Respiratory: Airway is patent Trachea midline Respiratory effort is even, unlabored, Respiratory pattern is symmetrical. Vital Signs: 18:39 BP 152 / 94; Pulse 117; Pulse Ox 96% on R/A; sj 18:56 BP 131 / 85; Pulse 111; Resp 16; Temp 98.2(TE); Pulse Ox 94% ; Weight 44.45 kg; Height sj 5 ft. 5 in. (165.10 cm); Pain 10/10; 18:56 Body Mass Index 16.31 (44.45 kg, 165.10 cm) ED Course: 18:16 Patient arrived in ED. arc 18:16 Luis M Cobos MD is Private Physician. arc 18:34 Tonie Walters is Primary Nurse. sj 18:35 Triage completed. sj 18:45 Luisito Hinojosa MD is Attending Physician. 18:53 Valuables Given to family. Patient has correct armband on for positive identification. sj Bed in low position. Call light in reach. Side rails up X 1. Warm blanket given. 18:55 Inserted peripheral IV: 20 gauge in left forearm. sc1 Administered Medications: 19:11 Drug: morphine 4 mg; Route: IVP; Site: left forearm; sc1 19:16 Follow up: Response: No adverse reaction; Pain is decreased sc1 19:11 Drug: Zofran 4 mg; Route: IVP; Infused Over: 2 mins; Site: left forearm; sc1 19:17 Follow up: Response: No adverse reaction ma1 Outcome: 18:58 ER care complete, transfer ordered by . 19:18 Transferred: Patient will be transferred to: [facility]. Facility sc1 Acceptance Time: October 20, 2016 at 19:10 Patient's face sheet was faxed to accepting facility. Face Sheet included patient's name, address, age, gender, contact information and insurance information. Patient will be transported by: [facility] ground. Report called to: Wes CLAYTON Nurse and Physician Charting and Notes were sent to Accepting Facility. All tests and/or procedures with results, if applicable, were sent to accepting facility. 19:18 Condition: improved 19:18 Instructed on need for transfer 19:19 Patient left the ED. sc1 Signatures: Daniela Conte RN RN sc1 Luisito Hinojosa MD MD jm Chew, Amelia, Agusto Reg oTnie Mehta
--- NOTE | 2016-10-20 19:20 | ER PHYSICIAN DOCUMENTATION ---
Physician Documentation [facility] Name:Ashley Dangelo Age:81 yrs Sex:Female :1935 Arrival Date:10/20/2016 Time:18:15 Bed3 Private MD:Luis M Cobos ED, John Disposition: 10/20/16 18:58 Transfer ordered to [facility]. Diagnosis are Arterial Occlusion, Arterial Thrombosis. - Reason for transfer: Specialty. - Accepting physician is Dr. Jackson . - Condition is Serious. - Problem is new. - Symptoms have worsened. COBRA Form completed? Yes Transfer - Mode of Transportation Ambulance HPI: 10/20 18:49 This 81 yrs old Female presents to ER via Private Vehicle with complaints of jm Leg Pain. 18:49 The patient presents with an injury, pain. The complaints affect the dorsum of right jm foot. Context: resulted from an unknown cause. Onset: The symptom(s)/episode began/occurred 4 day(s) ago, and became worse. Modifying factors: the symptoms are aggravated by walking. Associated signs and symptoms: Pertinent positives: calf tenderness, numbness, tingling. Treatment prior to arrival includes: no previous treatment. Severity of symptoms: in the emergency department the symptoms are actually worse. The patient has not experienced similar symptoms in the past. The patient has been recently seen at the [facility] Emergency Department, just prior to arrival, by me, for similar complaints labs were performed. Pt here w worsening pain in her foot, now w numbness. . Historical: - Allergies: Jjsbvie-Pbu-Bjs Reductase Inhibitors; - Home Meds: 1. potassium chloride Oral 2. multivitamin oral 3. Coreg Oral 4. Lasix Oral 5. Spironolactone Oral 6. budesonide oral 7. Cardizem Oral 8. Timolol Maleate Opht 9. patanase 10. Klonopin Oral 11. Nitrostat SL - PMHx: atrial fibrillation; CHF; GLAUCOMA; esophageal stricture; humeral fracture; osteopenia; subdural hematoma; left leg injury; - PSHx: left eye; - Tetanus: < 10 years. - Ebola Screening: : Patient negative for fever greater than or equal to 101.5 degrees Fahrenheit, and additional compatible Ebola Virus Disease symptoms. Patient denies exposure to infectious person. Patient denies travel to an Ebola-affected area in the 21 days before illness onset. No symptoms or risks identified at this time. . - Immunization history: Pneumococcal vaccine is up to date, Flu Vaccine < 1 year. - Social history: Smoking status: Patient states was never smoker of tobacco. Patient/guardian denies using alcohol, marijuana. ROS: 18:52 Respiratory: Negative for cough, shortness of breath. 18:52 MS/extremity: Positive for paresthesias, tingling. 18:52 Skin: Positive for pallor. 18:52 Neuro: Positive for numbness. 18:52 Psych: Negative for Exam: 18:53 Constitutional: The patient appears alert, awake. 18:53 Eyes: Periorbital structures: appear normal, Conjunctiva: normal. 18:53 ENT: Voice: is normal, Breath odor: is normal. 18:53 Neck: Thyroid: appears normal, Trachea: is midline with no obvious abnormalities. 18:53 Cardiovascular: Rate: tachycardic, Rhythm: regular. 18:53 Respiratory: Respirations: normal, Breath sounds: are normal. 18:53 Back: pain, is absent, ROM is normal. 18:53 Musculoskeletal/extremity: Extremities: grossly normal except: noted in the right foot: palor, Perfusion: the extremity is cool, pale, noted to have sluggish capillary refill, R foot, DVT Exam: No signs of deep vein thrombosis. 18:53 Skin: Appearance: Color: pale, R foot, no rash present. 18:53 Neuro: Sensation: numbness, that is moderate, of the right foot, tingling, that is moderate, of the right foot. 18:53 Psych: Behavior/mood is pleasant, cooperative, anxious, Affect is calm. Vital Signs: 18:39 BP 152 / 94; Pulse 117; Pulse Ox 96% on R/A; sj 18:56 BP 131 / 85; Pulse 111; Resp 16; Temp 98.2(TE); Pulse Ox 94% ; Weight 44.45 kg; Height sj 5 ft. 5 in. (165.10 cm); Pain 10/10; 18:56 Body Mass Index 16.31 (44.45 kg, 165.10 cm) MDM: 18:40 Patient medically screened. 18:55 Differential diagnosis: arterial insuffiency, possibly from Afib. Data reviewed: vital jm signs, nurses notes, old medical records, radiologic studies, and as a result, I will *Transfer Patient. Counseling: I had a detailed discussion with the patient and/or guardian regarding: the historical points, exam findings, and any diagnostic results supporting the discharge/admit diagnosis, lab results, the need to transfer to another facility. Medication response: The patient's symptoms have improved, Physician consultation: Dr. Shaw was called at 18:56, was contacted at 18:56. ED course: Pt's foot is much worse than a few hours ago when I saw her. It is now pale w/o cap refill. . 18:56 ED course: Pt needs urgent US or CTa w runoff to eval for arterial clot. I will not jm start blood thinner w/o a certain dx / recent ICH. . 10/20 19:20 Order name: PROTIME/INR EDMT 10/20 19:10 Order name: Iv Saline Lock; Complete Time: 19:11 [facility] [place] Dispensed Medications: 19:11 Drug: morphine 4 mg; Route: IVP; Site: left forearm; [facility] [place] 19:16 Follow up: Response: No adverse reaction; Pain is decreased [facility] [place] 19:11 Drug: Zofran 4 mg; Route: IVP; Infused Over: 2 mins; Site: left forearm; [facility] [place] 19:17 Follow up: Response: No adverse reaction [facility] [place] Signatures: Daniela Conte, FORREST RN ak1 Luisito Hinojosa MD MD jm Janzen, Sarah sj
== END 2016-10-20 19:20 | disposition short-term general hospital (02) ==
LOC: ER 18:15
DX: I74.8 Embolism and thrombosis of other arteries (principal); M79.661 Pain in right lower leg; R20.2 Paresthesia of skin; R23.1 Pallor; I48.91 Unspecified atrial fibrillation; I10 Essential (primary) hypertension; I25.10 Atherosclerotic heart disease of native coronary artery without angina pectoris; Z79.899 Other long term (current) drug therapy; Z86.79 Personal history of other diseases of the circulatory system; Z99.89 Dependence on other enabling machines and devices; Z99.81 Dependence on supplemental oxygen; Z74.3 Need for continuous supervision
CPT/HCPCS: 85610; 96374; 96375; 99285; A0425; A0427

== ENCOUNTER 2016-10-27 07:53 | Emergency (ER) | payer MEDICARE, OTHER ==
--- NOTE | 2016-10-27 08:58 | ER PHYSICIAN DOCUMENTATION ---
Physician Documentation [facility] Name:Ashley Dangelo Age:81 yrs Sex:Female :1935 Arrival Date:10/27/2016 Time:07:53 Bed1 Private MD:Luis M Cobos EDchungLuisito Disposition: 10/27/16 08:51 Discharged to Home/Self Care. Impression: Swelling Of Limb. - Condition is Good. - Medical Reconciliation form form. - Follow up: Luis M Cobos MD; When: Tomorrow; Reason: Continuance of care. - Problem is new. - Symptoms have improved. - Notes: Follow up with Dr. Izquierdo HPI: 10/27 09:19 This 81 yrs old Female presents to ER via Private Vehicle with complaints of jm Feet Swelling. 09:23 The patient presents with swelling. The complaints affect the left lateral ankle, jm anterior aspect of left ankle and dorsum of left foot. Context: resulted from an unknown cause. Onset: The symptom(s)/episode began/occurred today. Pt denies pain, but has swelling in her L foot. Pt is on warfarin for an arterial clot in her R foot, but they went through the L femoral artery. Pt has a lot of bruising around that site. Pt is on warfarin and lovenox currently. . Historical: - Allergies: Fgtytsu-Uio-Zoj Reductase Inhibitors; - Home Meds: 1. potassium chloride Oral 2. multivitamin oral 3. Coreg Oral 4. Lasix Oral 5. Spironolactone Oral 6. budesonide oral 7. Cardizem Oral 8. Timolol Maleate Opht 9. patanase 10. Klonopin Oral 11. Nitrostat SL - PMHx: atrial fibrillation; CHF; GLAUCOMA; esophageal stricture; humeral fracture; osteopenia; subdural hematoma; left leg injury; Arterial Occlusion (October 20, 2016); Arterial Thrombosis (October 20, 2016); - PSHx: left eye; - Tetanus: < 10 years. - Ebola Screening: : Patient negative for fever greater than or equal to 101.5 degrees Fahrenheit, and additional compatible Ebola Virus Disease symptoms. - Immunization history: Pneumococcal vaccine is up to date, Flu Vaccine < 1 year. - Social history: Smoking status: Patient states was never smoker of tobacco. ROS: 09:23 Constitutional: Negative for fatigue, fever. 09:23 MS/extremity: Positive for ecchymosis, tenderness. 09:23 Skin: Positive for ecchymosis. 09:23 Neuro: Negative for numbness, tingling. 09:23 Psych: Positive for anxiety, Negative for Exam: 09:23 Constitutional: The patient appears alert, awake, anxious. 09:23 Musculoskeletal/extremity: Extremities: noted in the left inguinal area and left iliac crest: ecchymosis, swelling, noted in the left foot: ecchymosis, swelling, Edema, 2+ to the left ankle and left foot is noted, Weight bearing: able to fully bear weight. 09:23 Musculoskeletal/extremity: L foot w Dopplerable pulse. . 09:23 Skin: Appearance: ecchymosis, that are moderate, of the left foot. Vital Signs: 08:02 BP 118 / 72; Pulse 93; Resp 16; Temp 98.0(O); Pulse Ox 90% on R/A; Weight 43.54 kg (R); arc Height 5 ft. 6 in. (167.64 cm) (R); Pain 0/10; 08:02 Body Mass Index 15.49 (43.54 kg, 167.64 cm) arc MDM: 07:55 Patient medically screened. 09:40 Differential diagnosis: dependent edema from proximal catheter site. Data reviewed: dilan vital signs, nurses notes, lab test result(s), and as a result, I will discharge patient. Counseling: I had a detailed discussion with the patient and/or guardian regarding: the historical points, exam findings, and any diagnostic results supporting the discharge/admit diagnosis, the need for outpatient follow up, with the patient's primary care provider. 10/27 08:29 Order name: INR W/ CAPI DRAW; Complete Time: 08:52 EDMS Dispensed Medications: No medications were administered Signatures: Luisito Hinojosa MD MD jm Hofsess, Rachel
--- NOTE | 2016-10-27 08:58 | ER NURSING DOCUMENTATION ---
Nurse's Notes [facility] Name:Ashley Dangelo Age:81 yrs Sex:Female :1935 Arrival Date:10/27/2016 Time:07:53 Bed1 Private MD:Luis M Cobos Diagnosis:Swelling Of Limb Presentation: 10/27 08:02 Transition of care: patient was not received from another setting of care. tg 08:02 Acuity: TRICIA 2 tg 08:02 Method Of Arrival: Private Vehicle tg 08:51 Presenting complaint: Patient states: Pt had a blood clot in the right leg, she had a rh cath done on the left femoral. Pt has some blood pooling in the left foot, no pain and able to bear weight. Triage Assessment: 08:53 General: Appears in no apparent distress, Behavior is cooperative. Pain: Denies pain. rh Neuro: Level of Consciousness is awake, alert, obeys commands. Cardiovascular: Capillary refill < 3 seconds. Derm: Bruising that is dark purple, on left lateral ankle, left medial ankle and anterior aspect of left ankle. Injury Description: no injury. Historical: - Allergies: Xpnfkij-Yzn-Whl Reductase Inhibitors; - Home Meds: 1. potassium chloride Oral 2. multivitamin oral 3. Coreg Oral 4. Lasix Oral 5. Spironolactone Oral 6. budesonide oral 7. Cardizem Oral 8. Timolol Maleate Opht 9. patanase 10. Klonopin Oral 11. Nitrostat SL - PMHx: atrial fibrillation; CHF; GLAUCOMA; esophageal stricture; humeral fracture; osteopenia; subdural hematoma; left leg injury; Arterial Occlusion (October 20, 2016); Arterial Thrombosis (October 20, 2016); - PSHx: left eye; - Tetanus: < 10 years. - Ebola Screening: : Patient negative for fever greater than or equal to 101.5 degrees Fahrenheit, and additional compatible Ebola Virus Disease symptoms. - Immunization history: Pneumococcal vaccine is up to date, Flu Vaccine < 1 year. - Social history: Smoking status: Patient states was never smoker of tobacco. Screenin:54 Infectious Disease Risk None. Abuse screen: Denies threats or abuse. Denies injuries rh from another. Nutritional screening: No deficits noted. Assessment: 08:54 See Triage Assessment done by same RN. rh Vital Signs: 08:02 BP 118 / 72; Pulse 93; Resp 16; Temp 98.0(O); Pulse Ox 90% on R/A; Weight 43.54 kg (R); arc Height 5 ft. 6 in. (167.64 cm) (R); Pain 0/10; 08:02 Body Mass Index 15.49 (43.54 kg, 167.64 cm) [facility] ED Course: 07:55 Patient arrived in ED. [facility] 07:55 Luis M Cobos MD is Private Physician. [facility] 08:01 Luisito Hinojosa MD is Attending Physician. dilan 08:02 Triage completed. tg 08:50 Luis M Cobos MD is Referral Physician. 08:54 Valuables Remains with patient Placed in gown. Bed in low position. Call light in reach. Side rails up X 1. 08:57 Joy Garza is Primary Nurse. Administered Medications: No medications were administered Outcome: 08:51 Discharge ordered by . 08:57 Discharged to home ambulatory, with significant other. 08:57 Condition: improved 08:57 Discharge Assessment: Patient awake, alert and oriented x 3. No cognitive and/or functional deficits noted. Patient verbalized understanding of disposition instructions. 08:57 Discharge instructions given to patient, significant other, Instructed on discharge instructions, follow up and referral plans. Demonstrated understanding of instructions. 08:57 Patient left the ED. 0508 11:35 Discharge F/U Call: Overall Care on a scale of 1-10 with 10 being the best care, you tg rate our care as: Other comments: Spoke with pt- doing better, appreciative of care. Signatures: Casey Bui, RN RN Luisito Hinojosa MD MD jm Chew, Amelia, Reg Reg [facility] Joy Garza
== END 2016-10-27 08:58 | disposition home or self-care (01) ==
LOC: ER 07:53
DX: M79.89 Other specified soft tissue disorders (principal); R60.0 Localized edema; L76.32 Postprocedural hematoma of skin and subcutaneous tissue following other procedure; Z86.718 Personal history of other venous thrombosis and embolism; Z79.01 Long term (current) use of anticoagulants; Z79.899 Other long term (current) drug therapy
CPT/HCPCS: 85610; 99281

== ENCOUNTER 2017-01-07 17:32 | Emergency (ER) | payer MEDICARE, OTHER ==
--- NOTE | 2017-01-07 18:30 | ER NURSING DOCUMENTATION ---
Nurse's Notes [facility] Name:Ahsley Dangelo Age:81 yrs Sex:Female :1935 Arrival Date:01/07/2017 Time:17:32 Bed3 Private MD:Luis M Cobos Diagnosis:Ankle Hematoma Presentation: 01/07 17:33 Acuity: TRICIA 3 rh 17:37 Presenting complaint: Patient states: Left lower bruising with tenderness and slight cb swelling. Transition of care: Home. Notified ED Physician of patient's arrival and CC Dr. White notified. 17:37 Method Of Arrival: Private Vehicle cb Triage Assessment: 17:42 General: Appears in no apparent distress, well groomed, Behavior is cooperative. Pain: cb Complains of pain in left medial ankle Pain currently is 0 out of 10 on a pain scale. At worst was 5 out of 10 on a pain scale. EENT: No deficits noted. Neuro: Level of Consciousness is awake, alert, Oriented to person, place, time, event. Cardiovascular: Pulses are 2+ in left dorsalis pedis artery. Respiratory: Airway is patent Trachea midline Respiratory effort is even, unlabored, Respiratory pattern is regular, symmetrical. GI: Reports tolerance of fluids, tolerance of food. : No deficits noted. Derm: Bruising that is dark purple, Left lower leg. Musculoskeletal: No deficits noted. Historical: - Allergies: Sjofnbw-Ber-Cbh Reductase Inhibitors; - Home Meds: 1. Coumadin Oral 2. aspirin 325 mg oral tab 1 tab once daily 3. Cardizem Oral 4. Potassium Chloride Oral 5. budesonide oral 6. Spironolactone Oral 7. Lasix Oral - PMHx: ATRIAL FIB; colitis; - PSHx: watchman procedure; rectal surgery; - Tetanus: < 10 years. - Ebola Screening: : Patient negative for fever greater than or equal to 101.5 degrees Fahrenheit, and additional compatible Ebola Virus Disease symptoms. Patient denies exposure to infectious person. Patient denies travel to an Ebola-affected area in the 21 days before illness onset. No symptoms or risks identified at this time. . - Immunization history: Flu Vaccine < 1 year. - Social history: Smoking status: Patient states former smoker of tobacco. Screenin:48 Infectious Disease Risk None. Abuse screen: Denies threats or abuse. Denies injuries cb from another. Nutritional screening: No deficits noted. Vital Signs: 17:45 BP 133 / 66; Pulse 81; Resp 18; Temp 99.4(TE); Pulse Ox 95% on R/A; Weight 43.54 kg; cb Height 5 ft. 6 in. (167.64 cm); Pain 0/10; 17:45 Body Mass Index 15.49 (43.54 kg, 167.64 cm) cb ED Course: 17:33 Patient arrived in ED. ds 17:33 Luis M Cobos MD is Private Physician. ds 17:34 Triage completed. rh 17:37 Roseanne Edward, FORREST is Primary Nurse. cb 17:40 Eliezer White MD is Attending Physician. cd 17:48 Valuables Remains with patient Patient has correct armband on for positive cb identification. Bed in low position. Call light in reach. 18:26 Luis M Cobos MD is Referral Physician. cd Administered Medications: No medications were administered Outcome: 18:27 Discharge ordered by MD. cd 18:30 Discharged to home ambulatory. rh 18:30 Condition: improved 18:30 Discharge Assessment: Patient awake, alert and oriented x 3. No cognitive and/or functional deficits noted. Patient verbalized understanding of disposition instructions. 18:30 Discharge instructions given to patient, significant other, Instructed on discharge instructions, follow up and referral plans. Demonstrated understanding of instructions. 18:30 Patient left the ED. 01/08 14:56 Discharge F/U Call: Spoke with: patient. other: Name: pt states the heat helped. We st talked about some of her other bruises that they were slow to fade. pt was told that she could try there heat there too. Signatures: Roseanne Edward, Lulú Centeno RN, cb, RN RN st Srot, Stephanie, Reg Reg ds Eliezer White MD MD cd Hofsess, Rachel
--- NOTE | 2017-01-07 18:30 | ER PHYSICIAN DOCUMENTATION ---
Physician Documentation [facility] Name:Ashley Dangelo Age:81 yrs Sex:Female :1935 Arrival Date:01/07/2017 Time:17:32 Bed3 Private MD:Luis M Cobos ED, Chris Disposition: 01/07/17 18:27 Discharged to Home/Self Care. Impression: Ankle Hematoma. - Condition is Good. - Discharge Instructions: HEMATOMA. - Medical Reconciliation form form. - Follow up: Luis M Cobos MD; When: 7 - 10 days; Reason: Recheck today's complaints, Continuance of care. - Problem is new. - Symptoms have improved. - Notes: warm packs. Rest. HPI: 01/07 17:35 This 81 yrs old Female presents to ER via Private Vehicle with complaints of cd Leg Pain - LEFT. 17:35 The patient presents with swelling, tenderness, due to small dime sized hematoma above cd her ankle. Patient anti-coagulated on Coumadin and INR yesterday was 3.1. The complaints affect the left medial ankle. Historical: - Allergies: Xeimwal-Ysp-Rwl Reductase Inhibitors; - Home Meds: 1. Coumadin Oral 2. aspirin 325 mg oral tab 1 tab once daily 3. Cardizem Oral 4. Potassium Chloride Oral 5. budesonide oral 6. Spironolactone Oral 7. Lasix Oral - PMHx: ATRIAL FIB; colitis; - PSHx: watchman procedure; rectal surgery; - Tetanus: < 10 years. - Ebola Screening: : Patient negative for fever greater than or equal to 101.5 degrees Fahrenheit, and additional compatible Ebola Virus Disease symptoms. Patient denies exposure to infectious person. Patient denies travel to an Ebola-affected area in the 21 days before illness onset. No symptoms or risks identified at this time. . - Immunization history: Flu Vaccine < 1 year. - Social history: Smoking status: Patient states former smoker of tobacco. ROS: 18:30 MS/extremity: Positive for ecchymosis, swelling, small hematoma. cd 18:30 All other systems are negative. Exam: 18:30 Constitutional: The patient appears alert, awake, anxious. cd 18:30 Musculoskeletal/extremity: Extremities: grossly normal except: noted in the left medial ankle: ecchymosis, small hematoma, NO SIGNS of DVT, ROM: no acute changes, Circulation is intact in all extremities. Sensation intact. DVT Exam: No signs of deep vein thrombosis. Vital Signs: 17:45 BP 133 / 66; Pulse 81; Resp 18; Temp 99.4(TE); Pulse Ox 95% on R/A; Weight 43.54 kg; cb Height 5 ft. 6 in. (167.64 cm); Pain 0/10; 17:45 Body Mass Index 15.49 (43.54 kg, 167.64 cm) cb MDM: 17:40 Patient medically screened. cd 18:30 Data reviewed: vital signs, nurses notes, old medical records, and as a result, I will cd discharge patient. Dispensed Medications: No medications were administered Signatures: Roseanne Edward RN RN Eliezer Uribe MD MD cd Hofsess, Rachel
== END 2017-01-07 18:30 | disposition home or self-care (01) ==
LOC: ER 17:32
DX: M79.81 Nontraumatic hematoma of soft tissue (principal); I48.91 Unspecified atrial fibrillation; Z79.01 Long term (current) use of anticoagulants; Z79.82 Long term (current) use of aspirin; Z79.899 Other long term (current) drug therapy
CPT/HCPCS: 99281